=== PATIENT | male | born 1980 | race Caucasian/White ===

== ENCOUNTER 2016-12-03 21:47 | Emergency (ER) | payer MEDICAID ==
[2016-12-03] MEDS ORDERED: VANCOMYCIN HCL 1,000 MG/20 ML VIAL ONE (23:10)
[2016-12-03] MEDS ORDERED: LEVOFLOXACIN/D5W 150 ML IV ONE (23:11)
[2016-12-03 23:21] LABS: BASOPHIL# 0.1 X 10^3uL (0.0-0.1); BASOPHILS 0.8 % (0.0-2.0); EOSINOPHILS 2.5 % (0.0-6.0); EOSINOPHILS# 0.3 X 10^3uL (0.0-0.4); HEMATOCRIT 38.2 % (42.0-54.0); HEMOGLOBIN 13.2 g/dL (14.0-18.0); LYMPHOCYTES 21.7 % (20.0-40.0); LYMPHOCYTES# 2.8 X 10^3uL (0.8-3.8); MEAN CELL VOLUME 80.6 fL (80.0-100.0); MEAN CORPUS. HGB CONCENTRATION 34.5 g/dL (32.0-36.0); MEAN CORPUSCULAR HEMOGLOBIN 27.8 pg (29.0-35.0); MEAN PLATELET VOLUME 8.1 fL (7.4-10.4); MONOCYTES 6.7 % (2.0-10.0); MONOCYTES# 0.9 X 10^3uL (0.2-1.0); NEUTROPHILS 68.3 % (54.0-75.0); NEUTROPHILS# 8.9 X 10^3uL (2.6-6.7); PLATELET COUNT 381 X 10^3uL (130-440); RED BLOOD COUNT 4.74 X 10^6uL (4.20-6.10); RED CELL DISTRIBUTION WIDTH 12.8 % (11.5-14.5)
[2016-12-03 23:30] LABS: BLOOD UREA NITROGEN 8 mg/dL (9-20); CALCIUM 9.3 mg/dL (8.4-10.2); CHLORIDE 97 mmol/L (98-107); CREATININE 0.7 mg/dL (0.7-1.3); EST GLOMERULAR FILTRATION RATE > 60 mL/min; GLUCOSE 119 mg/dL (70-100); POTASSIUM 4.2 mmol/L (3.5-5.1); SODIUM 139 mmol/L (137-145)
--- NOTE | 2016-12-04 04:32 | ER PHYSICIAN DOCUMENTATION ---
Physician Documentation [facility] Name:Rohan Bran Age:36 yrs Sex:Male :1980 Arrival Date:12/03/2016 Time:21:47 Bed1 Private MD:Physician, No ED Elfego Padron Disposition: 12/03/16 22:47 Discharged to Home/Self Care. Impression: Osteomyelitis, Cellulitis of Foot. - Condition is Serious. - Discharge Instructions: CELLULITIS. - Medical Reconciliation form form. - Follow up: Private Physician; When: 1 - 2 days; Reason: Recheck today's complaints, Continuance of care. - Problem is an ongoing problem. - Symptoms are unchanged. HPI: 12/03 22:25 This 36 yrs old Male presents to ER via Private Vehicle with complaints of sc Leg Swelling - RIGHT. 22:25 The patient presents with swelling, tenderness. The complaints affect the lateral sc aspect of right calf, right ankle and lateral aspect of right foot. Context: osteomyelitis in toe, scheduled for amputation, on clindamycin x 3 days but increased erythema, pt declines admission at this time. Onset: The symptom(s)/episode began/occurred at an unknown time. Associated signs and symptoms: The patient has no apparent associated signs or symptoms. Treatment prior to arrival includes: prescription medications. Historical: - Allergies: Bactrim DS; Codeine; SILVER; - Home Meds: 1. metfomrin 2. Lisinopril Oral - PMHx: Diabetes - NIDDM; HYPERTENSION; previous staph in fections; - PSHx: HERNIA REPAIR; - Tetanus: < 10 years. - Ebola Screening: : Patient negative for fever greater than or equal to 101.5 degrees Fahrenheit, and additional compatible Ebola Virus Disease symptoms. Patient denies exposure to infectious person. Patient denies travel to an Ebola-affected area in the 21 days before illness onset. No symptoms or risks identified at this time. . - Immunization history: Pneumococcal vaccine is not up to date, Flu Vaccine None. - Social history: Smoking status: Patient states was never smoker of tobacco. Patient/guardian denies using alcohol, street drugs, IV drugs, marijuana. ROS: 22:27 Constitutional: Negative for fever, chills, and weight loss. sc Eyes: Negative for injury, pain, redness, and discharge. Neck: Negative for injury, pain, and swelling. Cardiovascular: Negative for chest pain, palpitations, and edema. Respiratory: Negative for shortness of breath, cough, wheezing, and pleuritic chest pain. Abdomen/GI: Negative for abdominal pain, nausea, vomiting, diarrhea, and constipation. Back: Negative for injury and pain. Skin: Negative for injury, rash, and discoloration. 22:27 Neuro: Negative for headache, weakness, numbness, tingling, and seizure. sc 22:27 MS/extremity: Positive for erythema, swelling, tenderness. Exam: Constitutional: This is a well developed, well nourished patient who is awake, alert, and in no acute distress. Head/Face: Normocephalic, atraumatic. Eyes: Pupils equal round and reactive to light, extra-ocular motions intact. Lids and lashes normal. Conjunctiva and sclera are non-icteric and not injected. Cornea within normal limits. Periorbital areas with no swelling, redness, or edema. Cardiovascular: Regular rate and rhythm with a normal S1 and S2. No gallops, murmurs, or rubs. Normal PMI, no JVD. No pulse deficits. Respiratory: Lungs have equal breath sounds bilaterally, clear to auscultation and percussion. No rales, rhonchi or wheezes noted. No increased work of breathing, no retractions or nasal flaring. 22:27 Abdomen/GI: Soft, non-tender, with normal bowel sounds. No distension or tympany. No sc guarding or rebound. No evidence of tenderness throughout. 22:27 Musculoskeletal/extremity: Extremities: grossly normal except: erythema, swelling, tenderness, Pulses: noted to be 1+ in the right posterior tibial artery and right dorsalis pedis artery, Edema, decreased sensation. Vital Signs: 22:13 BP 136 / 73; Pulse 83; Resp 18; Temp 98.3; Pulse Ox 95% on R/A; sc1 05 00:50 mk4 01:00 BP 132 / 76; Pulse 88; Resp 18; Pulse Ox 92% ; Pain 0/10; mk4 00:50 PT refused IV vancomycin. Stated " I must leave and go to [place] to get vicodin at my [facility]". RN explained the importance and risk factors of infection ( cellulitis ) and need to finish infusions. PT still chose to leave AMA.. PT also refused any wound care or dressing on right foot/big toe. MDM: 12/03 21:52 Patient medically screened. md 22:36 Differential diagnosis: diabetic foot, needs surgery and iv abx. Data reviewed: vital sc signs, nurses notes, lab test result(s). Data reviewed: and as a result, I will continue to observe the patient, administer antibiotics. Counseling: I had a detailed discussion with the patient and/or guardian regarding: the historical points, exam findings, and any diagnostic results supporting the discharge/admit diagnosis, the need for outpatient follow up, for a referral to a specialist. 22:47 ED course: outpt orders for iv levaquin and vanco til surgical follow up Sunday am. md 12/03 23:26 Order name: CBC AUTO DIF, MDIF/RMOR IF IND; Complete Time: 23:41 EDRI 12/03 23:41 Interpretation: Abnormal: WHITE BLOOD COUNT 13.0. md 12/03 23:31 Order name: BASIC METABOLIC PANEL; Complete Time: 23:41 EDRI 12/03 23:41 Interpretation: Normal Except. md 12/04 23:16 Order name: BLOOD CULTURE [facility] 12/04 23:16 Order name: BLOOD CULTURE [facility] 12/03 22:24 Order name: Iv Saline Lock; Complete Time: 23:03 md 12/03 22:25 Order name: Wound Care md Dispensed Medications: 22:35 Drug: Levaquin 750 mg; Volume: 150 ml; Route: IVPB; Rate: 200 ml/hr; Infused Over: 1.5 mk4 hrs; Site: left antecubital; Delivery: Pump; 12/04 00:50 Follow up: IV Status: Completed infusion; IV Intake: 150ml mk4 00:23 Not Given (Patient Refused): vancomycin 1 grams IVPB once over 2 hrs mk4 00:23 Not Given (Patient Refused): Bacitracin Ointment (500 unit/g) 6 application Topical oncemk4 Point of Care Testing: Blood Glucose: 12/03 22:12 Blood Glucose: 108 mg/dL; mv Ranges: Critical Glucose Levels:Adult <50 mg/dl or >400 mg/dl <40 mg/dl or >180 mg/dl Signatures: Erinn Mism RN RN sc Chew, Elfego, MD MD sc Elmer, Libertad mk4
--- NOTE | 2016-12-04 04:32 | ER NURSING DOCUMENTATION ---
Nurse's Notes [facility] Name:Rohan Bran Age:36 yrs Sex:Male :1980 Arrival Date:12/03/2016 Time:21:47 Bed1 Private MD:Physician, No Diagnosis:Osteomyelitis;Cellulitis of Foot Presentation: 12/03 22:03 Presenting complaint: Patient states: redness, swelling, drainage of right lower leg sc1 since scratching his leg with his fingernails 5-6 days ago. Pt. has osteomyelitis and ulcers to his right big toe in which the patient states that it is going to be amputated. There are multiple healing scabs around his right lower leg with a draining area over his martinez. Pt. was started on Clindamycin 3-4 days ago. Transition of care: Home. Notified ED Physician of patient's arrival and CC Dr. Platt notified. 22:03 Acuity: FILI 3 sc1 22:03 Method Of Arrival: Private Vehicle sc1 Triage Assessment: 22:12 General: Appears in no apparent distress, well developed, well nourished, well groomed, sc1 Behavior is cooperative, pleasant. Pain: Complains of pain in right martinez. Historical: - Allergies: Bactrim DS; Codeine; SILVER; - Home Meds: 1. metfomrin 2. Lisinopril Oral - PMHx: Diabetes - NIDDM; HYPERTENSION; previous staph in fections; - PSHx: HERNIA REPAIR; - Tetanus: < 10 years. - Ebola Screening: : Patient negative for fever greater than or equal to 101.5 degrees Fahrenheit, and additional compatible Ebola Virus Disease symptoms. Patient denies exposure to infectious person. Patient denies travel to an Ebola-affected area in the 21 days before illness onset. No symptoms or risks identified at this time. . - Immunization history: Pneumococcal vaccine is not up to date, Flu Vaccine None. - Social history: Smoking status: Patient states was never smoker of tobacco. Patient/guardian denies using alcohol, street drugs, IV drugs, marijuana. Screenin:14 Infectious Disease Risk None. Abuse screen: Denies threats or abuse. Nutritional sc1 screening: No deficits noted. Assessment: 22:25 See Triage Assessment done by same RN. mk4 Vital Signs: 22:13 BP 136 / 73; Pulse 83; Resp 18; Temp 98.3; Pulse Ox 95% on R/A; sc1 12/04 00:50 mk4 01:00 BP 132 / 76; Pulse 88; Resp 18; Pulse Ox 92% ; Pain 0/10; mk4 00:50 PT refused IV vancomycin. Stated " I must leave and go to [place] to get vicodin at my [facility] house". RN explained the importance and risk factors of infection ( cellulitis ) and need to finish infusions. PT still chose to leave AMA.. PT also refused any wound care or dressing on right foot/big toe. ED Course: 12/03 21:48 Patient arrived in ED. em2 21:48 Physician, No is Private Physician. em2 21:52 Elfego Platt MD is Attending Physician. id 22:03 Erinn Mims, ANGELIQUE is Primary Nurse. sc1 22:10 Triage completed. sc1 22:14 Notified ED Physician of patient's arrival and chief complaint. Dr. Platt notified. sc1 22:15 Valuables Remains with patient. Pulse ox on. NIBP on. mk4 23:02 Inserted peripheral IV: 20 gauge in left antecubital area and blood collected. mv Administered Medications: 22:35 Drug: Levaquin 750 mg; Volume: 150 ml; Route: IVPB; Rate: 200 ml/hr; Infused Over: 1.5 mk4 hrs; Site: left antecubital; Delivery: Pump; 12/04 00:50 Follow up: IV Status: Completed infusion; IV Intake: 150ml mk4 00:23 Not Given (Patient Refused): vancomycin 1 grams IVPB once over 2 hrs mk4 00:23 Not Given (Patient Refused): Bacitracin Ointment (500 unit/g) 6 application Topical oncemk4 Point of Care Testing: Blood Glucose: 12/03 22:12 Blood Glucose: 108 mg/dL; mv Ranges: Intake: 12/04 00:50 IV: 150ml; Total: 150ml. [facility] Outcome: 12/03 22:47 Discharge ordered by . id 12/04 01:00 Condition: good [facility] Discharge Assessment: Patient awake, alert and oriented x 3. No cognitive and/or functional deficits noted. Patient verbalized understanding of disposition instructions. Discharge instructions given to patient, Instructed on discharge instructions, follow up and referral plans. 01:00 Discharged to Instructed to return in AM for IV antibiotics. Given order. IV left in mk4 place and secured. 04:31 Patient left the ED. [facility] Signatures: Erinn Mims RN RN sc1 Elfego Platt MD MD sc Aditya Dawkins em2 Libertad Payne 4 deepika kilgore
== END 2016-12-04 04:32 | disposition home or self-care (01) ==
LOC: ER 21:47
DX: L03.115 Cellulitis of right lower limb (principal); M86.9 Osteomyelitis, unspecified; M79.89 Other specified soft tissue disorders; M79.661 Pain in right lower leg; I10 Essential (primary) hypertension; E11.9 Type 2 diabetes mellitus without complications; Z79.899 Other long term (current) drug therapy; Z86.19 Personal history of other infectious and parasitic diseases
CPT/HCPCS: 80048; 85025; 87040; 96365; 96366; 99284; J1956; J3370